=== PATIENT | female | born 1995 | race Caucasian/White ===

== ENCOUNTER 2019-03-21 01:03 | Outpatient (CLI) | payer MEDICAID, SELFPAY ==
[2019-03-21 01:28] VITALS: BMI 23.1
[2019-03-21] MEDS: acetaminophen 500 mg Tablet 1000 MG PO (03:42)
[2019-03-21 04:05] LABS: Amphetamines Screen Urine Negative (Negative); Barbiturates Screen Urine Negative (Negative); Benzodiazepines Screen Urine Negative (Negative); Cocaine Screen Urine Negative (Negative); Opiate Screen Urine Negative (Negative); PCP Screen Urine Negative (Negative); THC Screen Urine Positive (Negative)
== END 2019-03-21 04:18 | disposition home or self-care (01) ==
LOC: OPOB 01:22 → OBGYN 01:42 → OPOB 03-29 14:35
PROVIDERS: Visit Provider Obstetrics & Gynecology
DX: O26.899 Other specified pregnancy related conditions, unspecified trimester (principal); Z3A.00 Weeks of gestation of pregnancy not specified; R10.9 Unspecified abdominal pain
CPT/HCPCS: 80307; 99211

== ENCOUNTER 2019-03-30 22:08 | Outpatient (CLI) | payer MEDICAID, SELFPAY ==
[2019-03-30] VITALS (20 sets, daily range): BP systolic 117–122; BP diastolic 68–79; PULSE 91–114; O2SAT 96–98
[2019-03-30 23:06] LABS: Add Urine Microscopic? NO
[2019-03-30 23:18] LABS: Amphetamines Screen Urine Negative (Negative); Barbiturates Screen Urine Negative (Negative); Benzodiazepines Screen Urine Negative (Negative); Bilirubin Urine Neg (NEGATIVE); Blood Urine Neg (Negative); Cocaine Screen Urine Negative (Negative); Glucose Urine UA Norm (Normal); Ketones Urine Negative (Negative); Leukocyte Esterase Urine Negative (Negative); Nitrate Urine Negative (Negative); Opiate Screen Urine Negative (Negative); PCP Screen Urine Negative (Negative); Protein Urine Neg (Negative); Sulfosalicylic Acid Urine Negative; THC Screen Urine Positive (Negative); Urine Appearance Clear (CLEAR); Urine Color Yellow (Yellow); Urobilinogen Urine Norm (Negative); pH Urine 8 (5-7)
[2019-03-31] VITALS (26 sets, daily range): BP systolic 0–129; BP diastolic 0–89; PULSE 83–100; RESP 18; TEMP 37.1; O2SAT 97–99
[2019-03-31] MEDS: NIFEdipine ER (24 hr) 30 mg Tablet PO (01:05)
== END 2019-03-31 02:08 | disposition home or self-care (01) ==
LOC: OPOB 22:20 → OBGYN 03-31 02:13 → OPOB 03-31 17:14
PROVIDERS: Visit Provider Obstetrics & Gynecology
DX: O26.899 Other specified pregnancy related conditions, unspecified trimester (principal); Z3A.00 Weeks of gestation of pregnancy not specified; R10.9 Unspecified abdominal pain
CPT/HCPCS: 59025; 80307; 81003; 99211

== ENCOUNTER → 2019-04-01 13:54 | Outpatient (BNVA) | payer MEDICAID, SELFPAY | PROVIDERS: Visit Provider Obstetrics & Gynecology | DX: O99.613 Diseases of the digestive system complicating pregnancy, third trimester (principal) | CPT/HCPCS: 81003 ==

== ENCOUNTER → 2019-04-18 13:45 | Outpatient (BNVA) | payer MEDICAID, SELFPAY | PROVIDERS: Visit Provider Obstetrics & Gynecology | DX: Z01.89 Encounter for other specified special examinations (principal) | CPT/HCPCS: 81000; 84315 ==

== ENCOUNTER → 2019-05-02 17:10 | Outpatient (BNVA) | payer MEDICAID, SELFPAY | PROVIDERS: Visit Provider Obstetrics & Gynecology | DX: Z34.83 Encounter for supervision of other normal pregnancy, third trimester (principal) | CPT/HCPCS: 81003; 87081 ==

== ENCOUNTER → 2019-05-10 15:20 | Outpatient (BNVA) | payer MEDICAID, SELFPAY | PROVIDERS: Visit Provider Obstetrics & Gynecology | DX: Z34.93 Encounter for supervision of normal pregnancy, unspecified, third trimester (principal) | CPT/HCPCS: 81003 ==

== ENCOUNTER 2019-05-12 03:10 | Outpatient (CLI) | payer MEDICAID, SELFPAY ==
[2019-05-12] VITALS (26 sets, daily range): BP systolic 0–163; BP diastolic 0–95; PULSE 98–124; TEMP 37.1; BMI 25.2
--- NOTE | 2019-05-12 03:57 | PC.NURSE ---
RN at bedside, pt and significant other updated on MD orders for labs due to elevated BPs. Patient and significant other verbalized understanding and agree with POC.
[2019-05-12 04:38] LABS: Basophils # 0.1 10^3/uL (0.0-0.1); Basophils % 0.4 %; Eosinophils # 0.1 10^3/uL (0.0-0.8); Eosinophils % 0.8 %; Hematocrit 30.8 % (37.0-47.0); Lymphocytes # 2.1 10^3/uL (0.8-4.8); Lymphocytes % 16.4 %; Mean Corpuscular HGB Conc 29.2 g/dL (30.0-36.0); Mean Corpuscular Hemoglobin 20.9 pg (28.0-34.0); Mean Corpuscular Volume 71.5 fL (81-99); Mean Platelet Volume 10.7 fL (7.4-10.4); Monocytes # 0.7 10^3/uL (0.2-0.9); Monocytes % 5.4 %; Neutrophils # 9.9 10^3/uL (1.8-7.7); Neutrophils % 76.1 %; Nucleated Red Blood Cells % 0.2 %; Platelet Count 332 10^3/cmm (130-400); Red Blood Count 4.31 10^6/uL (4.1-5.3); Red Cell Distribution Width 17.2 % (12.1-15.1)
[2019-05-12 04:41] LABS: Add Urine Microscopic? NO
[2019-05-12 04:48] LABS: Bilirubin Urine Neg (NEGATIVE); Blood Urine Neg (Negative); Glucose Urine UA Norm (Normal); Ketones Urine 1+ (Negative); Leukocyte Esterase Urine Negative (Negative); Nitrate Urine Negative (Negative); Protein Urine Neg (Negative); Urine Appearance Clear (CLEAR); Urine Color Yellow (Yellow); Urobilinogen Urine Norm (Negative); pH Urine 7 (5-7)
[2019-05-12 04:51] LABS: Alanine Aminotransferase 27 U/L (0-33); Albumin Level 3.1 g/dL (3.5-5.2); Alkaline Phosphatase 547 IU/L (35-105); Anion Gap 19.1 (5-19); Aspartate Amino Transferase 33 U/L (0-32); Blood Urea Nitrogen 7 mg/dL (6-20); Calcium 9.9 mg/dL (8.5-10.5); Carbon Dioxide 20 mmol/L (22-29); Chloride 97 mmol/L (98-107); Globulin 4.1 g/dL (1.3-4.6); Glomerular Filtration Rate 121.8 mL/min (90-130); Glucose 82 mg/dL (65-115); Potassium 4.1 mmol/L (3.5-5.1); Sodium 132 mmol/L (136-145); Total Bilirubin 0.2 mg/dL (0.15-1.2); Total Protein 7.2 g/dL (6.6-8.7); Uric Acid 4.7 mg/dL (2.4-5.7)
[2019-05-12 04:58] LABS: UPRO/UCREAT Ratio 0.14 mg/mg CR; Urine Creatinine 35 mg/dL (28-217); Urine Protein Random 5 mg/dL
[2019-05-12 05:00] LABS: Amphetamines Screen Urine Negative (Negative); Barbiturates Screen Urine Negative (Negative); Benzodiazepines Screen Urine Negative (Negative); Cocaine Screen Urine Negative (Negative); Opiate Screen Urine Negative (Negative); PCP Screen Urine Negative (Negative); THC Screen Urine Negative (Negative)
--- NOTE | 2019-05-12 05:35 | PC.NURSE ---
RN at bedside, POC discussed with patient and significant other, both agree and verbalized understanding.
== END 2019-05-12 07:53 | disposition home or self-care (01) ==
LOC: OPOB 03:22 → OBGYN 07:40 → OPOB 05-13 08:07
PROVIDERS: Visit Provider Obstetrics & Gynecology
DX: O26.899 Other specified pregnancy related conditions, unspecified trimester (principal); Z3A.00 Weeks of gestation of pregnancy not specified; R10.9 Unspecified abdominal pain
CPT/HCPCS: 36415; 59025; 80053; 80307; 81003; 82570; 84156; 84550; 85025; 99211

== ENCOUNTER → 2019-05-17 14:54 | Outpatient (BNVA) | payer MEDICAID, SELFPAY | PROVIDERS: Visit Provider Obstetrics & Gynecology | DX: Z34.90 Encounter for supervision of normal pregnancy, unspecified, unspecified trimester (principal) | CPT/HCPCS: 81003 ==

== ENCOUNTER 2019-05-19 10:18 | Inpatient (IN) | payer MEDICAID, SELFPAY ==
[2019-05-19] VITALS (69 sets, daily range): BP systolic 0–155; BP diastolic 0–94; PULSE 69–107; RESP 16–20; TEMP 36.6–37; O2SAT 85–99; BMI 24.2
[2019-05-19] MEDS: lactated ringers 1,000 ML 999 ML IV ×2 (07:50→08:45)
[2019-05-19 08:01] LABS: Basophils # 0.1 10^3/uL (0.0-0.1); Basophils % 0.4 %; Eosinophils # 0.1 10^3/uL (0.0-0.8); Eosinophils % 0.6 %; Hematocrit 30.1 % (37.0-47.0); Hemoglobin 8.6 g/dL (11.5-15.3); Lymphocytes # 1.8 10^3/uL (0.8-4.8); Lymphocytes % 12.9 %; Mean Corpuscular HGB Conc 28.6 g/dL (30.0-36.0); Mean Corpuscular Hemoglobin 19.5 pg (28.0-34.0); Mean Corpuscular Volume 68.4 fL (81-99); Mean Platelet Volume 11.3 fL (7.4-10.4); Monocytes # 0.8 10^3/uL (0.2-0.9); Monocytes % 5.8 %; Neutrophils # 11.3 10^3/uL (1.8-7.7); Neutrophils % 79.5 %; Nucleated Red Blood Cells % 0.1 %; Platelet Count 344 10^3/cmm (130-400); Red Cell Distribution Width 17.4 % (12.1-15.1); White Blood Count 14.2 10^3/uL (4.0-10.0)
[2019-05-19 08:21] LABS: Amphetamines Screen Urine Negative (Negative); Barbiturates Screen Urine Negative (Negative); Benzodiazepines Screen Urine Negative (Negative); Cocaine Screen Urine Negative (Negative); Opiate Screen Urine Negative (Negative); PCP Screen Urine Negative (Negative); THC Screen Urine Positive (Negative)
--- NOTE | 2019-05-19 08:21 | P.HP_ITS ---
Providers/Chief Complaint Admitting Physician: Skip Cardona Primary RADIOLOGICAL METALLURGIST: Dr. Van Bustos Chief Complaint: Labor HPI RADIOLOGICAL METALLURGIST History of Present Illness Dianelys Bowden is a 24 year old female presents to labor delivery this a.m. with complaint of uterine contractions every 2 minutes described as 10/10. Denies leaking of fluid or bleeding she has good movement. Upon examination by nurse she was 90% effaced 4 cm dilated vertex and admitted for delivery. She denies any medical problems or issues with this she has good movement no headaches no visual changes no right upper quadrant or midepigastric pain. This has been complicated by late entry to care nurse initially seen by us at at 32 weeks (transferred from [place]) Labs G5 === [facility] === 11/07/2018 Blood type: A positive. Antibody screen: Negative. Intake CBC: WBC 10.0, Hgb 12.2, Hct 37.9, MCV 80.8, Plt 318. Rubella: Nonimmune (3.8). Hepatitis B surface antigen: Negative. Hepatitis C antibody: Negative. RPR: Nonreactive. HIV: Negative. TSH: 2.840. Cystic fibrosis screen: Declined. Urine drug screen: Positive THC with confirmation. Urine culture: <10,000 CFU mixed organisms. Gonorrhea: Negative. Chlamydia: Negative. Pap smear: ASCUS with negative HR HPV. Quad screen: Declined. 03/06/2019 28 week H&H: 9.9/31.8 GCT: 110. === [facility] [place] 05/02/2019 GBS: Negative. Ultrasound OB Ultrasound G5 LMP 08/06/2018 ---> EDC 05/13/2019 === 1. 10/11/2018 ---> 7-6/7 WG ---> EDC 05/24/2019. (Use this ultrasound for dating). Performed at [facility]. CRL 1.5 cm. FHR 160 bpm. 2. 01/08/2019 ---> 20-5/7 WG ---> EDC 05/23/2019. EFW 14 oz. (388 g) Performed at [facility]. Normal anatomic survey. Breech. FHR 156 bpm. Fundal placenta. Visually normal amniotic fluid volume. GBS NEGATIVE Present Details : 5 Para: 0 Review of Systems Const: Denies: fever, chills or body aches Eyes: Denies: change in vision Card: Denies: chest pain or palpitations Resp: Denies: shortness of breath or productive cough GI: Reports: abdominal pain (Uterine contractions every 2 minutes); Denies: nausea, vomiting or rectal pain : Denies: difficulty urinating, painful urination, urinary frequency, genital lesion, vaginal odor or vaginal bleeding Musc: Denies: extremity pain or extremity swelling Skin/Breast: Denies: rash Neuro: Denies: headache, numbness in extremities or weakness in extremities Psych: Denies: anxiety or depression Endo: Denies: excessive urination, cold intolerance or heat intolerance Dutch/Lymph: Denies: easy bruising or easy bleeding All/Imm: Denies: hives Medications/Allergies Allergies Allergy/AdvReac Type Severity Reaction Status Date / Time Penicillins Allergy Unknown Verified 05/17/19 14:57 [facility] RADIOLOGICAL METALLURGIST Medical History Anemia affecting Gastroesophageal reflux in in third trimester Rubella non-immune status, antepartum Surgical History S/P cholecystectomy (~2017) Laparoscopic S/P dilation and curettage (~2013) Treatment of miscarriage S/P dilation and curettage (~2015) Treatment of miscarriage S/P dilation and curettage (~2017) Treatment of miscarriage Family History Grandmother Diabetes maternal Hypertension Stroke Social History Smoking and tobacco status: current every day smoker cigarettes Packs smoked per day: 0.50 Years cigarettes smoked: 6 [ Other cigarette details: Was 2 ppd. Started age 17. No vaping. ] Smoking risk assessment/counseling performed?: Yes Alcohol intake: current Alcohol intake frequency: holidays/special occasions only History History 5 Term 0 Miscarriages/Ectopic 4 0 Living Children 0 Past Pregnancies Del. Date GA/Weeks Outcome Route Wt Inf Gender Labor Lgth Comp. Anesth esia Location Unknown 15 spontaneous Unknown 15 spontaneous Unknown 9 spontaneous Unknown 15 spontaneous Delivery Date: On 04/06/19 @ 16:03 Van Bustos First . 2013. Treated by D&C Delivery Date: On 04/06/19 @ 16:03 Van Bustos Second . 2014. Treated with a pill . Delivery Date: On 04/06/19 @ 16:07 Van Bustos Third . 2016. Treated by D&C. Delivery Date: On 04/06/19 @ 16:16 Van Bustos Fourth . 2018. Treated by D&C. Other Female Reproductive History Hx Age of Menarche: 12 Duration of menses: 3-5 days Cycle Length: every 28 days Menstrual flow: normal/abnormal: heavy Sexual History Are you sexually active?: Yes What is your sexual preference?: Heterosexual Hx Sexually Transmitted Diseases: No Have you ever tested positive for HIV?: No Contraception control method: Pills and Condoms Care TIMMY Calculator Estimated Delivery Date Method Current WG Current Estimate 05/24/19 Ultrasound #1 39w 2d Other Estimates 05/13/19 LMP (Uncertain) 40w 6d 05/23/19 Ultrasound #2 39w 3d Expected Delivery Route/Plan vaginal delivery Specific Issues/Plans Risk Factors: Marijuana use, Rubella non-immune, Anemia OB Visit Log Initial Weight: Not Recorded Date -?-?-?-?-?-?-?-?-?-?-?- EGA Weight BP Albumin -?-?-?-?-?-?-?-?-?--?-?-?- Glucose Nitrate -?-?-?-?-?--?-?-?-?-?-?-?- Blood Fundal Ht PRES HR Movement Edema Dilation Effacement Station 04/01/19 -?-?-?-?-?-?-?-?-?-?-?- 32w 3d 71.838 kg 118/82 Neg ( Negative) -?-?-?-?-?-?-?-?-?-?-?-?- Norm (Normal) Negative (Negat yisel) -?-?-?-?-?-?-?-?-?-?-?-?- 30.5 31.5 126 04/18/19 -?-?-?-?-?-?-?-?-?-?-?- 34w 6d 72.178 kg 120/78 Neg ( Negative) -?-?--?-?-?-?-?-?-?-?-?-?- Norm (Normal) Negative (Negat yisel) -?-?-?-?-?-?-?-?-?-?-?-?- 33.5 142 absent 05/02/19 -?-?-?-?-?-?-?-?-?-?-?- 36w 6d 73.142 kg 120/88 Neg ( Negative) -?-?-?-?-?-?-?-?-?-?-?-?- Norm (Normal) Negative (Negat yisel) -?-?-?-?-?-?-?-?-?-?-?-?- 35 121 active absent 05/10/19 -?-?-?-?-?-?-?-?-?-?-?- 38w 0d 75.41 kg 122/92 Neg (N egative) -?-?-?-?-?-?-?-?-?-?-?-?- Norm (Normal) Negative (Negat yisel) -?-?-?-?-?-?-?-?-?-?-?-?- Neg (Negative) 36.5 38 141 active absent 1+ 2 75 -2 05/17/19 -?-?-?-?-?-?-?-?-?-?-?- 39w 0d 74.446 kg 132/82 1+ (N egative) H -?-?-?-?-?-?-?-?-?-?-?-?- Norm (Normal) Negative (Negat yisel) -?-?-?-?-?-?-?-?-?-?-?-?- Neg (Negative) 38 146 active absent 3 90 -2 05/19/19 -?-?-?-?-?-?-?-?-?-?-?- 39w 2d 74.389 kg 74.389 kg 138/88 132/81 128/78 0/0 -?-?-?-?-?-?-?-?-?-?-?-?- -?-?-?-?-?-?-?-?-?-?-?-?- Vertex Vertex 135 130 -1 -1 Notes Visit Date: 05/19/19 No visit notes to display Visit Date: 05/17/19 No visit notes to display Visit Date: 05/10/19 GILBERTO at 38-0/7 WG. No new complaints. Labor precautions discussed. GBS negative. Van Bustos MD on 05/14/19 Visit Date: 05/02/19 GILBERTO at 36-6/7 WG. No new complaints. Labor precautions discussed. GBS testing today. Van Bustos MD on 05/06/19 Visit Date: 04/18/19 GILBERTO at 34-6/7 WG. No new complaints. GERD improved with omeprazole. GBS testing next visit. labor precautions discussed. Van Bustos MD on 04/20/19 Visit Date: 04/01/19 Transfer of care at 32-3/7 WG. records reviewed. Complained of reflux symptoms not controlled with Zantac and antacids. Patient started on omeprazole. Found to have significant anemia. High iron foods and OTC iron recommended. Hemogram with possible iron studies next visit. Pertussis vaccine recommended. Van Bustos MD on 04/06/19 Vitals/I&O/Wt Last Vital Signs Temp 98.3 F 05/19/19 07:20 Pulse 69 05/19/19 06:58 BP 128/78 05/19/19 06:58 Pulse Ox 99 05/19/19 06:29 Weight last 48 hrs Weight 74.389 kg Weight 74.389 kg Physical Exam Narrative: EXAM NARRATIVE: Alert and oriented mesomorphic young lady. Apparent discomfort with uterine contractions. Monitor shows category 1 tracing Baseline 140 uterine contractions every 3 minutes Skin without rashes HEENT grossly normal Lungs clear to auscultation Heart regular sinus rhythm Abdomen gravid soft nontender uterus consistent with dates Pelvic exam nursing exam on admission 90% 4 cm vertex, intact Extremities grossly intact Neurologic exam normal gait Data : 05/19/19 07:46 A&P Assessment and plan (1) Active labor at term: This young lady presents in active labor, early we will go ahead and admit at this time monitor as appropriate patient does request epidural 1 will be provided pending services of anesthesia. Anticipate vaginal delivery. Have discussed delivery labor with patient and spouse she understands I am covering physician. All questions answered. Status: Acute Attestations Medical Necessity Statement*: Active labor Time Spent in Patient Care: 16 - 35 minutes Proxy 30 minutes spent with patient and spouse evaluating her labor heart rate and discussing labor and delivery. Coding Level of Care Code Acute Supervisor [employer] Division for Chg Fwd Medical Decision Making Moderate Complexity Diagnoses Active labor at term Time Spent (min) 30 Comment Greater than 50% of time spent counseling patient and spouse
--- NOTE | 2019-05-19 08:51 | ANES.PREANE2 ---
Pre-Anesthetic Assessment Pre-Anesthetic Assessment: Height/Weight: Height 1.75 m Weight 74.389 kg Temp Pulse BP Pulse Ox 98.3 F 83 119/68 98 05/19/19 07:20 05/19/19 08:48 05/19/19 08:48 05/19/19 08:49 Preop Diagnosis: labor pain Proposed Procedure: TIM Familial anesthetic complications: no Was Beta Vera taken within 24 hours: N/A Last Intake: 03:00 Social: Social History: Tobacco and No alcohol Exam: Pre-Anes Outpt Exam: alert, oriented x 3, clear to auscultation bilaterally and regular rate & rhythm Airway: Submandibular: WNL Cervical ROM: WNL MP: 2 Dentition: Full History/ROS: No significant history except as noted and No significant complaints Pulmonary: Pulmonary: None reported CV/HEM: CV/HEM: HTN Comments: better lately. No meds : : None reported Hepatic: Hepatic: None reported GI: GI: GERD Metabolic: Metabolic: None reported Musc/skel: Musc/skel: Lower Back Pain and Scoliosis Neuropsych: Neuropsych: None reported Anesthetic Plan: ASA status: 2 Anesthesia: Anesthesia Evaluation and Regional (specify below) Other: TIM Meds/Allergies Current Medications: Current Medications Generic Name Dose Route Start Last Admin Trade Name Freq PRN Reason Stop Dose Admin Ropivacaine 200 mg in 100 mls @ 6 mls/hr 05/19/19 07:45 05/19/19 08:45 Naropin Premix EPIDURAL 13 mls/hr .[id number] JOSE GUADALUPE Administration PFSH Anesthesia PFSH: Medical History Anemia affecting Gastroesophageal reflux in in third trimester Rubella non-immune status, antepartum Surgical History S/P cholecystectomy (~2017) Laparoscopic S/P dilation and curettage (~2013) Treatment of miscarriage S/P dilation and curettage (~2015) Treatment of miscarriage S/P dilation and curettage (~2017) Treatment of miscarriage Family History Grandmother Diabetes maternal Hypertension Stroke Social History Smoking and tobacco status: current every day smoker cigarettes Packs smoked per day: 0.50 Years cigarettes smoked: 6 [ Other cigarette details: Was 2 ppd. Started age 17. No vaping. ] Smoking risk assessment/counseling performed?: Yes Alcohol intake: current Alcohol intake frequency: holidays/special occasions only Female Reproductive History: : 5 Data Anesthesia CBC & Chem 7: 05/19/19 07:46 Other Labs: Laboratory Results - last 48 hr 05/19/19 05/19/19 07:15 07:46 WBC 14.2 H RBC 4.40 Hgb 8.6 L Hct 30.1 L MCV 68.4 L MCH 19.5 L MCHC 28.6 L RDW 17.4 H Plt Count 344 MPV 11.3 H Neut % (Auto) 79.5 Lymph % (Auto) 12.9 [place] % (Auto) 5.8 Eos % (Auto) 0.6 Baso % (Auto) 0.4 Neut # (Auto) 11.3 H Lymph # (Auto) 1.8 [place] # (Auto) 0.8 Eos # (Auto) 0.1 Baso # (Auto) 0.1 Nucleated RBC % (auto) 0.1 Nucleated RBCs # 0.0 Urine Opiates Screen Negative Ur Barbiturates Screen Negative Ur Phencyclidine Scrn Negative Ur Amphetamines Screen Negative U Benzodiazepines Scrn Negative Urine Cocaine Screen Negative U Marijuana (THC) Screen Positive H Cardiac Studies: No Data to Display
--- NOTE | 2019-05-19 08:54 | P.ANES_ITS ---
Anesthesia Procedures Procedure/Date: 05/19/19 TIM Epidural: Time Out Performed: Yes Consents Signed: Procedure Consent and No Consent Needed Consent: requested by attending/covering physician, from p atient, risks and benefits reviewed and patient agrees to proceed Lumbar Level: L3-L4 Epidural position: sitting Epidural procedure: sterile prep of area, 1% lidocaine to numb the area, 18 g needle, neg for paresthesia, test dose given, 1.5% xylocaine 1:200k epi, 0.2% Ropivacaine bolus ml, placed PCEA, no systemic response, sterile dressing applied and 0.2% Ropiavacaine @ mls/hr Additional Comments: Bupiv 0.25% 8 cc and fentanyl 100 mcg bolus
[2019-05-19] MEDS: ondansetron 2 mg/ML SDV 2 mL 4 MG IVP (09:30)
--- NOTE | 2019-05-19 10:59 | PM.DELIVERY ---
 Delivery Note: Date of delivery: May 19, 2019 Pre-Delivery Course: benign, transferred to us at 32 weeks EGA. mild anemia Delivery: 34-year-old G5,P0 AB 4 now P1 AB 4 at 39+ weeks gestation transfer to our practice at 32 weeks from as well. Had mild anemia noted in third trimester otherwise no complications. Patient presented to labor delivery early a.m. of 05/19/2019 in early labor. Progressed very nicely throughout for stage of labor with category 1 tracing underwent epidural placement at approximate 4 to 5 cm and continue to progress nicely. Underwent amniotomy clear fluid approximately 0930 hrs. and progressed to complete and complete. Had reassuring heart rate in the second stage of the rather short second stage. Spontaneous vaginal delivery viable female infant occiput anterior Apgars were 8/9. Head was well controlled and delivered with a modified Ritgen maneuver. Anterior shoulder (left) was easily delivered and the baby delivered without incident. Baby was placed on mom's abdomen underwent delayed cord clamping. Mom did receive IV Pitocin with delivery of the 's body. Once cord was clamped and cut was attended to by nurses with Apgars 8 and 9. Placenta delivered spontaneously with 3 vessels there was good uterine contractility inspection of vagina and cervix showed no laceration. There was a second-degree midline perineal laceration with bilateral labial extension right worse than left. All lacerations repaired with 3-0 Vicryl in standard fashion good proximity attended the case. Baby left in room with parents for bonding. Will go to floor anticipate discharge home 24 hours. No complications Post-Delivery Status: Stable A&P Assessment and plan (1) Active labor at term: Delivered Status: Acute (2) Anemia: Status: Acute Code(s): D64.9 - Anemia, unspecified (3) Term delivered: Uncomplicated Status: Acute Code(s): O80 - Encounter for full-term uncomplicated delivery Coding Level of Care Code Acute Paraprofessional Education Assistant for Chg Fwd History Expanded Problem Focused Exam Expanded Problem Focused Medical Decision Making Moderate Complexity Diagnoses Active labor at term Anemia D64.9 Term delivered O80 Time Spent (min) 30 Comment 30 minutes spent with delivery and repair.
[2019-05-19] MEDS: lidocaine 2% INJ 20 mL INJECTION (11:27)
[2019-05-19] MEDS: HYDROcodone-acetaminophen 5-325 mg Tablet PO (11:39)
[2019-05-19] MEDS: benzocaine-menthol 78 gm Canister 1 SPRAY TOPICAL (13:42)
[2019-05-19] MEDS: lanolin oint 7 gm 1 APPLIC TOPICAL (13:43)
[2019-05-19] MEDS: oxytocin 30 UNIT/500 ML BAG 999 UNIT IV (14:26)
[2019-05-19] MEDS: ferrous sulfate EC 325 mg Tablet PO (18:45)
[2019-05-19] MEDS: docusate sodium 100 mg Capsule PO (18:45)
--- NOTE | 2019-05-19 21:05 | PC.NURSE ---
DFS here to speak with patient at this time
[2019-05-19] MEDS: sennosides 8.6 mg Tablet 17.2 MG PO (21:12)
[2019-05-20 00:33] VITALS: BP 117/82; PULSE 90; RESP 18; TEMP 36.6; O2SAT 99
[2019-05-20 03:34] LABS: Hematocrit 26.9 % (37.0-47.0); Hemoglobin 7.6 g/dL (11.5-15.3); Mean Corpuscular HGB Conc 28.3 g/dL (30.0-36.0); Mean Corpuscular Hemoglobin 19.7 pg (28.0-34.0); Mean Corpuscular Volume 69.7 fL (81-99); Mean Platelet Volume 11.1 fL (7.4-10.4); Platelet Count 287 10^3/cmm (130-400); Red Blood Count 3.86 10^6/uL (4.1-5.3); Red Cell Distribution Width 17.5 % (12.1-15.1)
[2019-05-20 04:30] VITALS: BP 112/76; PULSE 78; RESP 18; TEMP 36.7; O2SAT 98
--- NOTE | 2019-05-20 07:22 | P.DS_ITS ---
Discharge Providers YARDAGE TUFTING MACHINE OPERATOR Date of Admission: 05/19/19 10:18 Date of Discharge: 05/20/19 Attending Provider at Admission: Skip Cardona DO Attending Provider at Discharge: Skip Cardona DO Diagnoses at Discharge Discharge Diagnosis (1) Active labor at term: Status: Acute Problem details: Term , delivered Anemia, iron deficient (2) Anemia: Status: Acute Problem details: will continue FESO4 325 mg po bid (3) Term delivered: Status: Acute Problem details: 1. Status post vaginal delivery immediate . 2. Anemia, antepartum treat with ferrous sulfate twice daily Reason for Visit Reason for Visit: Reason For Visit: Labor Hospital Course Hospital Course: Patient was admitted to labor and delivery in active labor early a.m. 05/19/2019 category 1 tracing did well progressed nicely throughout labor with spontaneous vaginal delivery of viable infant without difficulty. Right labial laceration repaired. day 1 patient is doing well is up and about minimal pain minimal bleeding ready for discharge. is thriving. Discharge Summary: See above patient doing well day 1 will discharge home follow-up in 2 weeks is considering contraception. Information Peripartum Data: Delivery Method: Vaginal Physical Exam Narrative: EXAM NARRATIVE: Alert and oriented no acute distress in bed no complaints HEENT grossly normal Abdomen soft nontender uterus U- 2 firm no bleeding Perineum not inspected Extremities full range of motion nontender no swelling Urinary Catheter Management^: Menjivar: Cath Placed During This Visit: yes Urethral Indwelling: No Urinary Catheter Date of Insertion: 05/19/19 Urinary Catheter Time of Insertion: 09:15 Discharge Data Data Completed and Pending: Labs from last 24 hours 05/20/19 05/19/19 05/19/19 03:06 07:46 07:15 WBC 15.0 H 14.2 H RBC 3.86 L 4.40 Hgb 7.6 L 8.6 L Hct 26.9 L 30.1 L MCV 69.7 L 68.4 L MCH 19.7 L 19.5 L MCHC 28.3 L 28.6 L RDW 17.5 H 17.4 H Plt Count 287 344 MPV 11.1 H 11.3 H Neut % (Auto) 79.5 Lymph % (Auto) 12.9 [place] % (Auto) 5.8 Eos % (Auto) 0.6 Baso % (Auto) 0.4 Neut # (Auto) 11.3 H Lymph # (Auto) 1.8 [place] # (Auto) 0.8 Eos # (Auto) 0.1 Baso # (Auto) 0.1 Nucleated RBC % (a uto) 0.1 Nucleated RBCs # 0.0 Urine Opiates Scre en Negative Ur Barbiturates Sc reen Negative Ur Phencyclidine S crn Negative Ur Amphetamines Sc reen Negative U Benzodiazepines Scrn Negative Urine Cocaine Scre en Negative U Marijuana (THC) Screen Positive H Vitals: Last Vital Signs Temp 98.1 F 05/20/19 04:30 Pulse 78 05/20/19 04:30 Resp 18 05/20/19 04:30 BP 112/76 05/20/19 04:30 Pulse Ox 98 05/20/19 04:30 Discharge Plan Discharge Patient Disposition: Home, Self-Care Condition: Stable Prescriptions: New acetaminophen 325 mg Tablet 650 mg PO Q6H PRN (Reason: Mild pain or temp > 100.4) Qty: 90 RF: 0 ferrous sulfate 325 mg (65 mg iron) Tablet,Delayed Release (Dr/Ec) 325 mg PO BIDWM 60 Days Qty: 120 RF: 2 Continued omeprazole 20 mg capsule,delayed release(DR/EC) 20 mg PO DAILY Qty: 30 RF: 4 Complete 14 mg iron- 400 mcg Tablet 1 tab PO DAILY RF: 0 Discharge Orders: Discharge Order (Routine); Ordered 05/20/19 Ordered By: Skip Cardona Referrals: Skip Cardona DO [Physician] - 2 weeks (Check CBC) Discharge Diet: Usual diet Discharge Activity: Increase activity as tolerated Discharge Attestations YARDAGE TUFTING MACHINE OPERATOR Time Spent in Discharge Care*: less than 30 min Coding Level of Care Code Acute Unload Associate for Chg Fwd Diagnoses Active labor at term Anemia D64.9 Term delivered O80
--- NOTE | 2019-05-20 07:55 | ANE.PACU2 ---
 Inpatient post-anesthesia follow up: Airway intact: Yes Vital signs: Temperature 98.1 F Pulse Rate 78 Respiratory Rate 18 Blood Pressure 112/76 Pulse Oximetry 98 Oxygen Delivery Me thod Room Air Oxygen Flow Rate Fraction of Inspir ed Oxygen Hydration adequate: Yes Nausea and vomiting: No Mental status: Baseline Additional Comments: up and walking, urinating with removal of de oliveira, no back pain or signs of infection. When asked about headache patient says, Yes, but not really, no.
[2019-05-20] MEDS: pantoprazole DR 40 mg Tablet PO (10:18)
[2019-05-20] MEDS: ferrous sulfate EC 325 mg Tablet PO (10:18)
[2019-05-20] MEDS: prenatal vitamin Capsule 1 CAP PO (10:18)
[2019-05-20] MEDS: docusate sodium 100 mg Capsule PO (10:18)
[2019-05-20 10:26] VITALS: BP 127/87; PULSE 87; RESP 18
[2019-05-20 16:30] VITALS: BP 114/71; PULSE 82; RESP 18; TEMP 36.7; O2SAT 96
[2019-05-20] MEDS: measles,mumps,rubella pf Vial (w/diluent) 0.5 ML SUBCUT (17:02)
[2019-05-20 18:39] VITALS: BP 114/71; PULSE 82; RESP 18; TEMP 36.7; O2SAT 96
== END 2019-05-20 17:45 | disposition home or self-care (01) | DRG 807 ==
LOC: OPOB 05-20 07:55
PROVIDERS: Admitting Provider Obstetrics & Gynecology Female Pelvic Medicine and Reconstructive Surgery; Visit Provider Obstetrics & Gynecology Female Pelvic Medicine and Reconstructive Surgery
DX: O99.02 Anemia complicating childbirth (principal); Z37.0 Single live birth; Z3A.39 39 weeks gestation of pregnancy; D64.9 Anemia, unspecified; O70.1 Second degree perineal laceration during delivery; O99.334 Smoking (tobacco) complicating childbirth; F17.210 Nicotine dependence, cigarettes, uncomplicated; O99.284 Endocrine, nutritional and metabolic diseases complicating childbirth; K21.9 Gastro-esophageal reflux disease without esophagitis
CPT/HCPCS: 12345; 36415; 51702; 59409; 80307; 83986; 85025; 85027; 90707; 96374; 96375; 99211; J2001; J2405; J2795; J3010; J3490

== ENCOUNTER → 2019-07-09 16:02 | Outpatient (BNVA) | payer MEDICAID, SELFPAY | PROVIDERS: Visit Provider Obstetrics & Gynecology | DX: Z12.4 Encounter for screening for malignant neoplasm of cervix (principal) | CPT/HCPCS: 88175 ==

== ENCOUNTER → 2019-07-17 14:13 | Outpatient (BNVA) | payer MEDICAID, SELFPAY | PROVIDERS: Visit Provider Obstetrics & Gynecology | DX: O90.81 Anemia of the puerperium (principal) | CPT/HCPCS: 85027 ==

== ENCOUNTER 2019-09-06 03:05 | Emergency (ER) | payer MEDICAID, SELFPAY ==
[2019-09-06 03:10] VITALS: BP 110/81; PULSE 107; RESP 18; TEMP 36.4; O2SAT 96; BMI 22.1
--- NOTE | 2019-09-06 03:15 | ED_ITS ---
HPI - Allergic Reaction General: Chief complaint: Allergic Reaction Stated complaint: possible allergic reaction Time Seen by Provider: 09/06/19 03:13 Source: patient Mode of arrival: ambulatory Limitations: no limitations History of Present Illness: HPI narrative: Amy is a very nice 24-year-old female who comes in complaining of itching and hives. She has had the symptoms for the past 3 days and they wax and wane in intensity. She denies any throat tightening or shortness of breath. She is had no wheezing, diarrhea or near syncopal type symptoms. She believes these are secondary to the medicine she is taking or possibly to bug bites. She otherwise denies any systemic symptoms. She has had similar symptoms in the past. Associated symptoms: Deny abdominal pain, dizziness, facial swelling, hoarseness, nausea, tongue swelling or vomiting Review of Systems Const: Denies: fever(s), chills, body aches, fatigue, malaise or diaphoresis Eyes: Denies: change in vision, blurry vision, blind spots, photophobia, eye discharge or eye redness ENMT: Denies: throat pain, odynophagia, hoarseness, swelling of lips/tongue, oral sores, ear or mastoid pain, ear discharge, change in hearing or nasal discharge Card: Denies: chest pain, palpitations, irregular heart rhythm, edema, lightheadedness, syncope, pre-syncope, dyspnea on exertion or orthopnea Resp: Denies: dyspnea, productive cough, non-productive cough, wheezing, hemoptysis or chest congestion GI: Denies: abdominal pain, nausea, vomiting, hematemesis, coffee ground emesis, heartburn, diarrhea, constipation, GI cramping, hematochezia or melena : Denies: flank pain, dysuria, urinary frequency, urinary urgency or hematur ia Musc: Denies: neck pain, back pain, extremity pain, extremity swelling, joint pain, joint swelling, joint redness, joint warmth or joint stiffness Skin/Breast: Denies: rash, pruritus, erythema, skin tenderness or jaundice Neuro: Denies: headache(s), numbness in extremities, weakness in extremities, sensory changes, lack of coordination, difficulty walking, dizziness, vertigo, confusion, Slurred speech present or seizure-like activity Dutch/Lymph: Denies: easy bruising, easy bleeding, petechiae, purpura or enlarged lymph nodes All/Imm: Reports: urticaria; Denies: throat swelling, tongue swelling, facial swelling or acute wheezing PFSH ED PFSH: Medical History Blood type A+ Surgical History S/P cholecystectomy (~2017) Laparoscopic S/P dilation and curettage (~2013) Treatment of miscarriage S/P dilation and curettage (~2015) Treatment of miscarriage S/P dilation and curettage (~2017) Treatment of miscarriage Family History Grandmother Diabetes maternal Hypertension Stroke Social History Smoking and tobacco status: current every day smoker cigarettes Packs smoked per day: 0.50 Years cigarettes smoked: 6 [ Other cigarette details: Was 2 ppd. Started age 17. No vaping. ] Smoking risk assessment/counseling performed?: Yes Alcohol intake: current Alcohol intake frequency: holidays/special occasions only Adopted: Yes Physical Exam Const: COMMON NORMALS: no acute distress, patient oriented x3, no limitations, healthy appearing and well nourished GENERAL APPEARANCE: cooperative, well kempt and well developed HENMT: COMMON NORMALS: normocephalic, atraumatic, external ears normal, EAC's normal and Normal external nose present HEAD & SCALP: normal to inspection, normocephalic and atraumatic FACE & SINUS: normal facial exam and face symmetric NOSE: Normal external nose present and Normal nares present EXTERNAL EAR: Yes external ears normal EXTERNAL AUDITORY CANAL: EAC's normal MOUTH: Normal oral and palatal mucosa present, lip normal and tongue normal Eye: COMMON NORMALS: Equal, round and reactive pupils present and conjunctivae normal GENERAL EYE: appearance normal, both eyes and all related structures ALIGNMENT: Yes alignment normal PERIORBITAL: periorbital findings normal EYELID: eyelids normal CONJUNCTIVA: Yes conjunctivae normal SCLERA: sclerae normal PUPIL: Yes Equal, round and reactive pupils present Neck/C-Spine: COMMON NORMALS: full ROM, no lymphadenopathy, supple, no meningeal signs and no JVD GENERAL: Yes normal visual inspection and Yes trachea midline Chest: COMMONS NORMALS: normal inspection of the chest and normal palpation of entire chest wall Resp: COMMON NORMALS: normal respiratory effort, No retractions and No use of accessory muscles EFFORT & INSPECTION: Yes able to speak in complete sentences and Yes symmetric chest movement AUSCULTATION: no crackles, no rales, no rhonchi and no wheezes Cardio: COMMON NORMALS: no JVD, regular rate, regular rhythm, S1 normal heart sound present and S2 normal heart sound present RATE: regular rate RHYTHM: regular rhythm HEART SOUNDS: S1 normal heart sound present, S2 normal heart sound present, no click, no gallops, no murmurs, no rubs and abnormal split S2 GI: COMMON NORMALS: Soft to palpation and No hepatosplenomegaly present PALPATION: Yes Soft to palpation, No Tenderness to palpation present (GI), No Guarding due to palpation present (GI), No Rigid due to palpation, Yes No hepatosplenomegaly present, No Hernia present, No Palpable mass present and No Pulsatile mass present : COMMON NORMALS: Yes no CVA tenderness BLADDER/KIDNEY EXAM: Yes no CVA tenderness EXTERNAL FEMALE EXAM: No Hernia present Back/Pelvis: COMMON NORMALS: no CVA tenderness, thoracic and lumbar spine normal to inspection, no thoracic nor lumbar tenderness and thoraco-lumbar ROM normal Extremity: COMMON NORMALS: normal to inspection, full ROM, capillary refill normal, no joint enlargement, no clubbing, cyanosis or edema and no calf tenderness Neuro: COMMON NORMALS: patient oriented x3, CN's II-XII intact bilaterally, moves all extremities, no focal motor deficits and no sensory deficits noted MENINGEAL SIGNS: Yes no meningeal signs SPEECH: speech normal Psych: COMMON NORMALS: mental status grossly normal, Normal thought process present, cooperative, normal affect, speech normal and activity/motor behavior normal APPEARANCE: Yes well kempt SPEECH: Yes normal speech THOUGHT PROCESS: Normal thought process present Skin: COMMON NORMALS: turgor normal, no jaundice, no petechiae and no mottling NARRATIVE SKIN EXAM: Diffuse hives GENERAL SKIN EXAM: turgor normal Course Vital Signs: Vital signs: Vital Signs Temperature 97.5 F L 09/06/19 03:10 Pulse Rate 107 H 09/06/19 03:10 Respiratory Rate 18 09/06/19 03:10 Blood Pressure 110/81 09/06/19 03:10 Pulse Oximetry 96 09/06/19 03:10 MDM - Allergic Reaction MDM Narrative: Medical decision making narrative: Patient is having an allergic reaction but there is no sign of anaphylaxis. I will go ahead and disc harge the patient home with prednisone, Pepcid and she will continue her Benadryl [id number]. Discharge Plan Discharge Patient Disposition: Home, Self-Care Clinical Impression: Urticaria Condition: Stable Prescriptions: New prednisone 10 mg tablets,dose pack See Rx Instructions .ROUTE .COMPLEX Qty: 21 RF: 0 Pepcid 40 mg tablet 40 mg PO BID 7 Days Qty: 14 RF: 0 No Action norethindrone (contraceptive) 0.35 mg tablet 0.35 mg PO DAILY Qty: 84 RF: 3 Complete 14 mg iron- 400 mcg Tablet 1 tab PO DAILY RF: 0 ferrous sulfate 325 mg (65 mg iron) Tablet,Delayed Release (Dr/Ec) 325 mg PO BIDWM 60 Days Qty: 120 RF: 2 Discharge Orders: Discharge Order (Routine); Ordered 09/06/19 Ordered By: Carmen Rossi Discharge Diet: Advance as tolerated Discharge Activity: Increase activity as tolerated Patient Instructions: Urticaria (ED) Activity Restrictions/Additional Instructions: Please return to the ER immediately for any of the signs or symptoms listed on your discharge instruction sheets, worsening/changing of your symptoms, you are not getting better as quickly as expected, or for ANY other cause or concerns. Continue Benadryl [id number] as needed for itching. Take the prescriptions I have prescribed you as well. Return to the ER for worsening of your symptoms or for any other cause for concern. Coding Level of Care Code ED Clinic Office Manager for [facility] Vitale
[2019-09-06] MEDS: predniSONE 20 mg Tablet 60 MG PO (03:23)
== END 2019-09-06 03:27 | disposition home or self-care (01) ==
PROVIDERS: Emergency Provider Emergency Medicine
DX: L50.9 Urticaria, unspecified (principal); F17.210 Nicotine dependence, cigarettes, uncomplicated
CPT/HCPCS: 12345; 99281; 99282; J7512